=== PATIENT | female | born 1995 | race Caucasian/White ===

== ENCOUNTER 2020-05-10 19:29 | Emergency (ER) | payer OTHER ==
[~2020-05-10] VITALS: Ht 167.6 cm; Wt 95.3 kg
[2020-05-10] MEDS ORDERED: MIRENA1 EACH CERVICAL (19:41)
[2020-05-10 19:48] LABS: URINE BILIRUBIN NEGATIVE (Negative); URINE BLOOD TRACE (Negative); URINE CLARITY HAZY; URINE COLOR YELLOW; URINE GLUCOSE-RANDOM* NEGATIVE (Negative); URINE KETONES NEGATIVE (Negative); URINE LEUKOCYTES-REFLEX 3+ (Negative); URINE NITRITE-REFLEX NEGATIVE (Negative); URINE PROTEIN (DIPSTICK) NEGATIVE (Negative); URINE UROBILINOGEN 0.2 E.U./dl (0.2-1.0)
[2020-05-10 19:54] LABS: AMORPHOUS PHOSPHATES Moderate /LPF (None Seen); CASTS None Seen /LPF (None Seen); CRYSTALS None Seen /LPF (None Seen); SQUAMOUS 4-10 Moderate /LPF (0-3)
[2020-05-10 19:55] LABS: URINE RBC 0-2 Rare /HPF (0-2); URINE WBC-REFLEX 6-15 Few /HPF (0-5)
[2020-05-10] MEDS ORDERED: DIFLUCAN150 MG PO (20:22)
[2020-05-10] MEDS ORDERED: KEFLEX500 M1 PO (20:23)
[2020-05-10 20:55] VITALS: BP 125/67
[2020-05-12 08:57] LABS: HSV PCR SOURCE BLISTER
[2020-05-14 08:08] LABS: HSV 1 DNA Negative (Negative); HSV 2 DNA Negative (Negative)
== END 2020-05-10 20:57 | disposition home or self-care (01) ==
LOC: ER 19:29
PROVIDERS: Physician Assistant
DX: B37.3 Candidiasis of vulva and vagina (principal); F17.210 Nicotine dependence, cigarettes, uncomplicated; Z79.899 Other long term (current) drug therapy; Z98.890 Other specified postprocedural states

== ENCOUNTER 2021-04-09 15:30 | Emergency (ER) | payer OTHER ==
[~2021-04-09] VITALS: Ht 167.6 cm; Wt 104.3 kg
[~2021-04-09 15:30] MED LIST: DIFLUCAN150 MG PO; KEFLEX500 M1 PO; MIRENA1 EACH CERVICAL
[2021-04-09 15:50] VITALS: BP 116/77
[2021-04-09] MEDS ORDERED: BACTRIM DS TAB1 EAC1 PO (16:11)
== END 2021-04-09 16:26 | disposition home or self-care (01) ==
LOC: ER 15:30
DX: J86.9 Pyothorax without fistula (principal); F17.210 Nicotine dependence, cigarettes, uncomplicated; Z98.890 Other specified postprocedural states